=== PATIENT | male | born 1980 | race Caucasian/White ===

== ENCOUNTER 2016-12-04 23:27 | Emergency (ER) | payer MEDICAID, OTHER ==
[~2016-12-04] VITALS: Ht 172.7 cm; Wt 72.6 kg
[2016-12-04 23:30] VITALS: BP 148/90
--- NOTE | 2016-12-05 00:18 | NUR ---
PT TAKEN TO BED 6
--- NOTE | 2016-12-05 00:25 | NUR ---
Dr. Cedillo evaluating patient at bedside.
--- NOTE | 2016-12-05 00:30 | NUR ---
35Y/M PT. PRESENTS TO ED WITH C/O ABSCESS TO ABDOMEN X 2 DAYS. PT. STATS REDNESS AND PUS YESTERDAY, TODAY PAIN. AAO X4, AMBULATORY WITH STAEDY GAIT. ABDOMEN REDNESS SPOT WITH PUS. C/O PAIN 01/04, VSS, NO S/SX OF DISTRESS AT THIS TIME. ER MD MADE AWARE OF PT. STATUS.
[2016-12-05] MEDS ORDERED: NEOMYCIN/POLYMYXIN/BACITRACIN 0.9 GM/1 PKT TP ONE (00:58)
[2016-12-05] MEDS ORDERED: BACITRACIN OINT 500 UNITS/GM PKT TP ONE (01:04)
--- NOTE | 2016-12-05 01:20 | NUR ---
Patient discharged with v/s stable. Written and verbal after care instructions given and explained. Patient alert, oriented and verbalized understanding of instructions. Ambulatory with steady gait. All questions addressed prior to discharge. ID band removed. Patient advised to follow up with PMD. Rx of KEFLEX 500 MG, NAPROSYN 500 MG given. Patient educated on indication of medication including possible reaction and side effects. Opportunity to ask questions provided and answered.
[2016-12-05 01:50] VITALS: BP 116/71
== END 2016-12-05 01:20 | disposition home or self-care (01) ==
LOC: MED 23:27
DX: L02.211 Cutaneous abscess of abdominal wall (principal); R03.0 Elevated blood-pressure reading, without diagnosis of hypertension
CPT/HCPCS: 99283

== ENCOUNTER 2018-09-12 10:47 | Emergency (ER) | payer OTHER ==
[~2018-09-12] VITALS: Ht 175.3 cm; Wt 73.1 kg
--- NOTE | 2018-09-12 11:04 | NUR ---
PATIENT AMBULATED TO BED 4 AT THIS TIME.
--- NOTE | 2018-09-12 11:05 | NUR ---
PT AMB TO BED 4
--- NOTE | 2018-09-12 11:15 | NUR ---
C/O COUGH/FEVER X4 DAYS. LUNGS CLEAR & EQUAL BILAT, NO USE OF ACCESORY MUSCLES NOTED, O2 SAT 97% RA, PT DENIES SOB N/V/D, PT IS AFEBRILE AT THIS TIME. SKIN IS PINK/WARM/DRY; AAOX4 WITH EVEN AND STEADY GAIT; HR EVEN AND REGULAR; VSS; PATIENT POSITIONED FOR COMFORT; HOB ELEVATED; BEDRAILS UP X1; BED DOWN. ER MD MADE AWARE OF PT STATUS.
--- NOTE | 2018-09-12 11:48 | NUR ---
ERMD AT BEDSIDE
[2018-09-12 12:48] VITALS: BP 131/78
--- NOTE | 2018-09-12 12:48 | NUR ---
Patient discharged with v/s stable. Written and verbal after care instructions given and explained. Patient alert, oriented and verbalized understanding of instructions. Ambulatory with steady gait. All questions addressed prior to discharge. ID band removed. Patient advised to follow up with PMD. Rx of ALBUTEROL & CODEINE/PROMETHAZINE given. Patient educated on indication of medication including possible reaction and side effects. Opportunity to ask questions provided and answered.
== END 2018-09-12 12:48 | disposition home or self-care (01) ==
LOC: MED 10:47
DX: R05 Cough (principal); J34.89 Other specified disorders of nose and nasal sinuses; F17.210 Nicotine dependence, cigarettes, uncomplicated
CPT/HCPCS: 71046; 99283

== ENCOUNTER 2019-04-02 10:52 | Emergency (ER) | payer OTHER ==
[~2019-04-02] VITALS: Ht 170.2 cm; Wt 77.1 kg
[2019-04-02 11:14] VITALS: BP 143/88
--- NOTE | 2019-04-02 11:23 | NUR ---
PT C/O BURNING/DISCOMFORT AFTER URINATION. PER PT HE NOTICED LIGHT RED BLOOD AFTER URINATION. DENIES LOWER BACK TENDERNESS, FEVER, OR CHILLS. PAIN LEVEL 6/10. PT ADDS PENILE DISCHARGE COLORED WHITE. STATES HE HAS UNPROTECTED SEX RECENTLY.
--- NOTE | 2019-04-02 11:30 | NUR ---
DR IVAN AT BEDSIDE
--- NOTE | 2019-04-02 11:38 | NUR ---
URINE COLLECTED FROM PATIENT
[2019-04-02 11:52] LABS: APPEARANCE,URINE CLEAR (CLEAR); BILIRUBIN,URINE NEGATIVE (NEGATIVE); BLOOD, URINE TRACE-I (NEGATIVE); COLOR,URINE YELLOW (YELLOW); LEUKOCYTE ESTERASE ,URINE NEGATIVE (NEGATIVE); NITRITE, URINE POSITIVE (NEGATIVE); UGLUCOSE NEGATIVE (NEGATIVE)
[2019-04-02 12:02] LABS: RBC,URINE 0-5 /HPF (0-5); WBC,URINE 0-5 /HPF (0-5)
[2019-04-02] MEDS ORDERED: cefTRIAXone 250 MG in LIDOCAINE MPF 1% 0.9 ML IM ONE (12:05)
[2019-04-02 12:33] VITALS: BP 120/86
--- NOTE | 2019-04-02 12:35 | NUR ---
Patient discharged with v/s stable. Written and verbal after care instructions ABOUT POSSIBLE STD INFECTION given and explained. Patient verbalized understanding. Ambulatory with steady gait. All questions addressed prior to discharge. Advised to follow up with PMD. PATIENT INSTRUCTED THAT RESULTS WILL BE RETURNED BY PHONE CALL IN COUPLE OF DAYS. Addendum: 04/02/19 at 1252 by MEDHello Curry POSITIVE RESULTS
[2019-04-04 06:11] LABS: CHLAMYDIA TRACHOMATIS AMP DNA Positive (Negative)
== END 2019-04-02 12:35 | disposition home or self-care (01) ==
LOC: MED 10:52
DX: Z20.2 Contact with and (suspected) exposure to infections with a predominantly sexual mode of transmission (principal); F17.210 Nicotine dependence, cigarettes, uncomplicated
CPT/HCPCS: 36415; 81001; 87086; 87491; 96372; 99283; J0696; J2001

== ENCOUNTER 2021-07-31 05:42 | Emergency (ER) | payer MEDICAID, OTHER ==
[~2021-07-31] VITALS: Ht 165.1 cm; Wt 74.8 kg
[2021-07-31 05:45] VITALS: BP 125/75
--- NOTE | 2021-07-31 05:48 | NUR ---
patient to bed 4 ambulatory
--- NOTE | 2021-07-31 05:54 | NUR ---
c/o laceration on the right eyebrow s/p fall coming out of the shower. denies loc. denies n/v/d. bleeding controlled. pmh: pauloies nka
[2021-07-31] MEDS ORDERED: LIDOCAINE 2% 1000 MG/50 ML VIAL INJ ONE (06:10)
[2021-07-31] MEDS ORDERED: BACI1PAC6 TP (06:23)
--- NOTE | 2021-07-31 06:30 | NUR ---
DR CREWS AT BEDSIDE SUTURING
[2021-07-31] MEDS ORDERED: BACITRACIN OINT 500 UNITS/GM PKT TP ONE ×2 (06:38→06:40)
[2021-07-31 06:45] VITALS: BP 125/75
== END 2021-07-31 06:45 | disposition home or self-care (01) ==
LOC: MED 05:42
DX: S01.111A Laceration without foreign body of right eyelid and periocular area, initial encounter (principal); Z79.899 Other long term (current) drug therapy; W01.10XA Fall on same level from slipping, tripping and stumbling with subsequent striking against unspecified object, initial encounter; Y93.89 Activity, other specified; Y92.89 Other specified places as the place of occurrence of the external cause; Y99.8 Other external cause status
CPT/HCPCS: 12011; 90471; 90715; 99283; J2001